=== PATIENT | female | born 2000 | race Caucasian/White ===

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

== ENCOUNTER 2020-08-18 14:53 | Emergency (ER) | payer BC ==
[2020-08-18] MEDS ORDERED: Sodium Chloride 0.9% 10 ML Syringe FLUSH PRN (15:19)
--- NOTE | 2020-08-18 15:19 | EDM.PDOC ---
ED HPI GENERAL MEDICAL PROBLEM - General Stated Complaint: BURNING WHILE PEE Time Seen by Provider: 08/18/20 15:18 Source of Information: Reports: Patient History Limitations: Reports: No Limitations - History of Present Illness INITIAL COMMENTS - FREE TEXT/NARRATIVE: 20-year-old female who reports she woke at 10 AM today rather severe lower abdominal cramping and burning with urination. She also developed diarrhea and has had pretty he is diarrhea since then. She had nausea associated with this and multiple episodes of vomiting and now has continued with nausea and dry heaving. She reports she's had diarrhea 15+. There has been no blood in her stool. She saw has noted that she has blood in her urine and very severe dysuria. She also had a fever 201F. She states she felt completely well yeste rday and through the night. She ate and drink normally yesterday. She rates her pain as a 5/10 now but at is worst he goes up to a 10/10. She feels weak all over. There are no other associated signs or symptoms. There are no other modifying factors. Onset: Today (10 AM) Duration: Constant Location: Reports: Abdomen, Back (Some and lower back), Other (Urethra) Quality: Reports: Burning, Sharp, Other (Cramping) Severity: Moderate (to severe) Improves with: Reports: None Worsens with: Reports: Other (Palpation. 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: Other (see below) (Nothing.) Lower Abdomen Pain Score (Numeric/FACES): 4 - Related Data Allergies Allergy/AdvReac Type Severity Reaction Status Date / Time milk Allergy Nausea Verified 11/18/16 07:11 Home Meds: Home Meds Albuterol [Ventolin HFA] 1 - 2 puff INH Q6H PRN 11/17/16 [History] Cyclobenzaprine [Flexeril] 10 mg PO TID PRN 11/17/16 [History] Levothyroxine [Synthroid] 88 mcg PO ACBREAKFAST 11/17/16 [History] desogestreL-ethinyl estradioL [Desogest-Eth Estra 0.15-0.03MG] 1 each PO DAILY 11/17/16 [History] traMADol [Ultram] 50 mg PO ASDIRECTED PRN 11/17/16 [History] traZODone 50 mg PO BEDTIME 11/17/16 [History] Ondansetron [Zofran ODT] 4 mg PO Q6H PRN #8 tab.dis 08/18/20 [Rx] Sulfamethoxazole/Trimethoprim [Septra DS] 1 each PO BID 7 Days #14 tab 08/18/20 [Rx] Past Medical History Respiratory History: Reports: Asthma Other Respiratory History: EXERCISE INDUCED Gastrointestinal History: Reports: Celiac Disease Psychiatric History: Reports: Anxiety, Depression Hematologic History: Reports: Anemia - Infectious Disease History Other Infectious Disease History: STAPH INFECTION (WOUND) - Past Surgical History Musculoskeletal Surgical History: Reports: Shoulder Surgery Other Musculoskeletal Surgeries/Procedures:: RIGHT SHOULDER Social & Family History - Tobacco Use Tobacco Use Status *Q: Unknown Ever Used Tobacco (Nonsmoker) - Caffeine Use Caffeine Use: Reports: None - Alcohol Use Alcohol Use History: No - Recreational Drug Use Recreational Drug Use: Yes Drug Use in Last 12 Months: Yes Recreational Drug Type: Reports: Marijuana/Hashish Recreational Drug Use Comment: Smokes marijuana about every other day. 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) ED ROS GENERAL - Review of Systems Review Of Systems: See Below Constitutional: Reports: Fever, Chills, Malaise, Weakness, Decreased Appetite HEENT: Reports: No Symptoms Respiratory: Reports: No Symptoms Cardiovascular: Reports: No Symptoms Endocrine: Reports: No Symptoms GI/Abdominal: Reports: Abdominal Pain, Diarrhea, Nausea, Vomiting : Reports: Dysuria, Hematuria Skin: Reports: No Symptoms Neurological: Reports: No Symptoms Psychiatric: Reports: No Symptoms Hematologic/Lymphatic: Reports: No Symptoms Immunologic: Reports: No Symptoms ED EXAM, RENAL/ - Physical Exam Exam: See Below Exam Limited By: No Limitations General Appearance: Alert, WD/WN, Moderate Distress Eye Exam: Bilateral Eye: EOMI, Normal Inspection (Sclerae are anicteric.), PERRL Ears: Normal External Exam, Hearing Grossly Normal Nose: Normal Inspection, Normal Mucosa, No Blood Throat/Mouth: Normal Lips, Normal Voice, No Airway Compromise, Other (Dry mucous membranes) Head: Atraumatic, Normocephalic Neck: Normal Inspection, Supple, Non-Tender, Full Range of Motion Respiratory/Chest: No Respiratory Distress, Lungs Clear, Normal Breath Sounds, No Accessory Muscle Use, Chest Non-Tender Cardiovascular: Normal Peripheral Pulses, Regular Rate, Rhythm, No Murmur GI/Abdominal: Normal Bowel Sounds, Soft, Guarding, Tender (Diffusely but more so over the lower abdomen.) Back Exam: Normal Inspection, Full Range of Motion. No: CVA Tenderness (R), CVA Tenderness (L) Extremities: Normal Inspection, Normal Range of Motion, Non-Tender, No Pedal Edema, Normal Capillary Refill Neurological: Alert, Oriented, CN II-XII Intact, Normal Cognition, No Motor/Sensory Deficits Skin Exam: Warm, Dry, Intact, Normal Color, No Rash Course - Vital Signs Last Recorded V/S: Last Vital Signs Temp 36.6 C 08/18/20 14:53 Pulse 89 08/18/20 18:30 Resp 20 08/18/20 18:30 BP 98/66 08/18/20 18:30 Pulse Ox 100 08/18/20 18:30 - Orders/Labs/Meds Orders: Active Orders 24 hr Category Date Time Status Abdomen Pelvis w Cont [CT] Stat Exams 08/18/20 16:36 Taken CULTURE URINE [RM] Stat Lab 08/18/20 15:18 Received Sodium Chloride 0.9% [Normal Saline] 1,000 ml Med 08/18/20 15:30 Active IV ASDIRECTED Sodium Chloride 0.9% [Saline Flush] Med 08/18/20 15:19 Active 10 ml FLUSH ASDIRECTED PRN Peripheral IV Insertion Adult [OM.PC] Routine Oth 08/18/20 15:19 Ordered Medication Orders Sodium Chloride (Normal Saline) 1,000 mls @ 150 mls/hr IV ASDIRECTED FUAD Sodium Chloride (Sodium Chloride 0.9% 10 Ml Syringe) 10 ml FLUSH ASDIRECTED PRN PRN Reason: Keep Vein Open Last Admin: 08/18/20 18:32 Dose: 10 ml Documented by: DAYNA Labs: Laboratory Tests 08/18/20 08/18/20 08/18/20 Range/Units 15:18 15:18 15:36 WBC 18.2 H (3.0-10.3) x10-3/uL RBC 4.97 (3.60-5.20) x10(6)uL Hgb 13.8 (11.4-15.5) g/dL Hct 41.7 (34.2-48.2) % MCV 83.9 (76.7-100.5) fL MCH 27.8 (23.9-33.9) pg MCHC 33.1 (31.9-34.8) g/dL RDW 13.8 (12.3-16.5) % Plt Count 303 (151-488) x10(3)uL MPV 9.4 (7.1-12.4) fL Add Manual Diff Yes Neutrophils % (Manual) 88 H (46-82) % Lymphocytes % (Manual) 7 L (13-37) % Monocytes % (Manual) 5 (4-12) % Sodium (135-145) mmol/L Potassium (3.5-5.3) mmol/L Chloride (100-110) mmol/L Carbon Dioxide (21-32) mmol/L BUN (7-18) mg/dL Creatinine (0.55-1.02) mg/dL Est Cr Clr Drug Dosing Estimated GFR (MDRD) (>60) BUN/Creatinine Ratio (9-20) Glucose (80-116) mg/dL Calcium (8.6-10.2) mg/dL Total Bilirubin (0.1-1.3) mg/dL AST (5-25) IU/L ALT (12-36) U/L Alkaline Phosphatase (56-112) IU/L C-Reactive Protein (0.5-0.9) mg/dL Total Protein (6.0-8.0) g/dL Albumin (3.5-5.2) g/dL Globulin g/dL Albumin/Globulin Ratio Lipase (73-393) U/L Urine Color Red (YELLOW) Urine Appearance Slightly cloudy (CLEAR) Urine pH 5.0 (5.0-6.5) Ur Specific [place] 1.020 (1.010-1.025) Urine Protein 500 H (NEGATIVE) mg/dL Urine Glucose (UA) Normal (NORMAL) mg/dL Urine Ketones 15 H (NEGATIVE) mg/dL Urine Occult Blood Large H (NEGATIVE) Urine Nitrite Positive H (NEGATIVE) Urine Bilirubin Negative (NEGATIVE) Urine Urobilinogen Normal (NEGATIVE) mg/dL Ur Leukocyte Esterase Large H (NEGATIVE) Urine RBC Packed H (0-5) Urine WBC Packed H (0-5) Urine HCG, Qual Negative (NEGATIVE) 08/18/20 08/18/20 Range/Units 15:36 15:36 WBC (3.0-10.3) x10-3/uL RBC (3.60-5.20) x10(6)uL Hgb (11.4-15.5) g/dL Hct (34.2-48.2) % MCV (76.7-100.5) fL MCH (23.9-33.9) pg MCHC (31.9-34.8) g/dL RDW (12.3-16.5) % Plt Count (151-488) x10(3)uL MPV (7.1-12.4) fL Add Manual Diff Neutrophils % (Manual) (46-82) % Lymphocytes % (Manual) (13-37) % Monocytes % (Manual) (4-12) % Sodium 140 (135-145) mmol/L Potassium 3.2 L (3.5-5.3) mmol/L Chloride 101 (100-110) mmol/L Carbon Dioxide 22 (21-32) mmol/L BUN 13 (7-18) mg/dL Creatinine 0.9 (0.55-1.02) mg/dL Est Cr Clr Drug Dosing TNP Estimated GFR (MDRD) > 60 (>60) BUN/Creatinine Ratio 14.4 (9-20) Glucose 113 (80-116) mg/dL Calcium 8.1 L (8.6-10.2) mg/dL Total Bilirubin 0.5 (0.1-1.3) mg/dL AST 17 (5-25) IU/L ALT 31 (12-36) U/L Alkaline Phosphatase 123 H (56-112) IU/L C-Reactive Protein 1.1 H (0.5-0.9) mg/dL Total Protein 7.8 (6.0-8.0) g/dL Albumin 4.3 (3.5-5.2) g/dL Globulin 3.5 g/dL Albumin/Globulin Ratio 1.2 Lipase 88 (73-393) U/L Urine Color (YELLOW) Urine Appearance (CLEAR) Urine pH (5.0-6.5) Ur Specific [place] (1.010-1.025) Urine Protein (NEGATIVE) mg/dL Urine Glucose (UA) (NORMAL) mg/dL Urine Ketones (NEGATIVE) mg/dL Urine Occult Blood (NEGATIVE) Urine Nitrite (NEGATIVE) Urine Bilirubin (NEGATIVE) Urine Urobilinogen (NEGATIVE) mg/dL Ur Leukocyte Esterase (NEGATIVE) Urine RBC (0-5) Urine WBC (0-5) Urine HCG, Qual (NEGATIVE) Meds: Medications Generic Name Dose Route Start Last Admin Trade Name Freriddhi PRN Reason Stop Dose Admin Sodium Chloride 1,000 mls @ 150 mls/hr 08/18/20 15:30 Normal Saline IV ASDIRECTED FUAD Sodium Chloride 10 ml 08/18/20 15:19 08/18/20 18:32 Sodium Chloride 0.9% 10 Ml Syringe FLUSH 10 ml ASDIRECTED PRN Administration Keep Vein Open Discontinued Medications Generic Name Dose Route Start Last Admin Trade Name Freq PRN Reason Stop Dose Admin Ceftriaxone Sodium 2 gm 08/18/20 18:08 08/18/20 18:32 Ceftriaxone 2 Gm Vial IVPUSH 08/18/20 18:09 2 gm ONETIME ONE Administration Sodium Chloride 1,000 mls @ 999 mls/hr 08/18/20 15:20 08/18/20 16:00 Normal Saline IV 08/18/20 16:20 999 mls/hr .BOLUS ONE Administration Promethazine HCl 25 mg/ Sodium 51 mls @ 200 mls/hr 08/18/20 18:35 08/18/20 18:41 Chloride IV 08/18/20 18:50 200 mls/hr ONETIME ONE Administration Sodium Chloride 1,000 mls @ 999 mls/hr 08/18/20 18:35 08/18/20 18:39 Normal Saline IV 08/18/20 19:35 999 mls/hr .BOLUS ONE Administration Ondansetron HCl 4 mg 08/18/20 15:20 08/18/20 15:57 Ondansetron 4 Mg/2 Ml Sdv IVPUSH 08/18/20 15:21 4 mg ONETIME ONE Administration - Re-Assessments/Exams Free Text/Narrative Re-Assessment/Exam: 08/18/20 16:35 hr: Her blood tests show an elevated white blood cell count. Her urinalysis was just a with a urinary infection. She does have The patient has received Zofran and about half a liter of normal saline IV. She states that she felt much improved. She is sitting on the edge of the bed and appears toxic 10 previous. Her nausea has resolved. Her abdominal pain is much less. However, secondary to the intestinal and urinary symptoms combined, I feel a CT scan of her abdomen and pelvis is necessary to more fully check this out. I discussed all this with the patient and she is in agreement this plan. 08/18/20 18:30: The patient has not received her Rocephin yet. She is now having further emesis. It is nonbilious. She has had no more diarrhea. She has had no more fevers. Abdomen is soft and nontender and the severe abdominal pain that she was having previous is gone. She is still having some blood in her urine. I will not give the patient another liter of normal saline IV as a bolus and will give her Phenergan IV. They are giving the Rocephin now. The plan will be following this for her to be discharged and I will send a prescription of Bactrim DS to the pharmacy for her to take. She has 4 tablets of Zofran at home and I will give her an additional 8 tablets and a prescription as well. She should drink small amounts of fluids frequently and she should rest. She can take Tylenol 1000 mg by mouth every 6 hours as needed for fever or pain. Precautions and reasons for return to the emergency department were discussed with the patient while she was in the emergency department were detailed in the patient's discharge instructions. Departure - Departure Time of Disposition: 20:15 Disposition: Home, Self-Care 01 Condition: Good (Improved) Clinical Impression: Dehydration, Vomiting and diarrhea UTI (urinary tract infection) Qualifiers: Urinary tract infection type: site unspecified Hematuria presence: with hematuria Qualified Code(s): N39.0 - Urinary tract infection, site not specified; R31.9 - Hematuria, unspecified - Discharge Information Prescriptions: Sulfamethoxazole/Trimethoprim [Septra DS] 1 each PO BID 7 Days #14 tab Ondansetron [Zofran ODT] 4 mg PO Q6H PRN #8 tab.dis PRN Reason: Nausea/Vomiting Instructions: Dehydration, Adult, [id number], Nausea and Vomiting, Adult, [id number], Diarrhea, Adult, [id number], Urinary Tract Infection, Adult, [id number] Referrals: Marie Summers E COMMERCE DEVELOPER [Primary Care Provider] - Additional Instructions: Your blood tests were reassuring. Your urine test showed evidence of infection. The CT scan of your abdomen and pelvis showed no acute problem with either your kidneys or your intestines. It appears that you have a urinary infection and that is causing all of your other symptoms. The vomiting and diarrhea did cause some dehydration and we have corrected that with IV fluids. You should drink small amounts of fluids frequently and increase your intake as you tolerated. Use the Zofran that you have for nausea or vomiting. Medications as prescribed for infection (Bactrim DS). Start this tomorrow. You were given an antibiotic tonight in your IV to start treatment of your infection. Rest. Back to the emergency department for increasing abdominal pain, unrelenting vomiting, high fever or any other concerning signs or symptoms. Sepsis Event Note (ED) - Focused Exam Vital Signs: Vital Signs Temp Pulse Resp BP Pulse Ox 08/18/20 18:30 89 20 98/66 100 08/18/20 18:15 84 20 104/62 100 08/18/20 18:01 70 20 96/57 L 99 08/18/20 17:48 102 H 20 97/61 100 08/18/20 17:30 76 20 113/55 L 100 08/18/20 17:23 76 20 114/60 100 08/18/20 16:31 74 20 115/54 L 100 08/18/20 16:14 73 20 127/67 99 08/18/20 15:45 98 20 110/64 100 08/18/20 15:30 96 20 107/69 100 08/18/20 15:15 110 H 20 107/64 100 08/18/20 15:12 93 20 121/66 100 08/18/20 14:53 36.6 C 97 20 130/79 100 - My Orders Last 24 Hours: My Active Orders 08/18/20 15:18 CULTURE URINE [RM] Stat 08/18/20 15:19 Sodium Chloride 0.9% [Saline Flush] 10 ml FLUSH ASDIRECTED PRN Peripheral IV Insertion Adult [OM.PC] Routine 08/18/20 15:30 Sodium Chloride 0.9% [Normal Saline] 1,000 ml IV ASDIRECTED 08/18/20 16:36 Abdomen Pelvis w Cont [CT] Stat - Assessment/Plan Last 24 Hours: My Active Orders 08/18/20 15:18 CULTURE URINE [RM] Stat 08/18/20 15:19 Sodium Chloride 0.9% [Saline Flush] 10 ml FLUSH ASDIRECTED PRN Peripheral IV Insertion Adult [OM.PC] Routine 08/18/20 15:30 Sodium Chloride 0.9% [Normal Saline] 1,000 ml IV ASDIRECTED 08/18/20 16:36 Abdomen Pelvis w Cont [CT] Stat
[2020-08-18] MEDS ORDERED: Sodium Chloride 0.9% 1,000 ML IV ONE ×2 (15:20→18:35)
[2020-08-18] MEDS ORDERED: Ondansetron 4 MG/2 ML SDV IVPUSH ONE (15:20)
[2020-08-18] MEDS ORDERED: Sodium Chloride 0.9% 1,000 ML IV SCH (15:30)
[2020-08-18] MEDS ORDERED: Iopamidol 755 Mg/ML 100 ML Bottle IV ONE (17:10)
[2020-08-18] MEDS ORDERED: cefTRIAXone 2 GM Vial IVPUSH ONE (18:08)
[2020-08-18] MEDS ORDERED: Promethazine 25 MG in Sodium Chloride 0.9% 50 ML IV ONE (18:35)
[2020-08-19 00:52] VITALS: BP 114/63; PULSE 69
== END 2020-08-18 20:45 | disposition home or self-care (01) ==
LOC: FB.ED 14:53
DX: N39.0 Urinary tract infection, site not specified (principal); E86.0 Dehydration; R31.9 Hematuria, unspecified; Z79.899 Other long term (current) drug therapy; Z91.011 Allergy to milk products
CPT/HCPCS: 36415; 74177; 80053; 81001; 81025; 83690; 85025; 86140; 87086; 87088; 87186; 96365; 96375; 99284; J0696; J2405; J2550; J7030; Q9967

== ENCOUNTER 2021-02-12 06:26 | Day surgery (SDC) | payer BC ==
[2021-02-12] MEDS ORDERED: Midazolam 1 MG/ML 2 ML SDV IV ONE (06:27)
[2021-02-12] MEDS ORDERED: Ondansetron 4 MG/2 ML SDV IVPUSH ONE (06:27)
[2021-02-12] MEDS ORDERED: Glycopyrrolate 0.2 MG/ML 5 ML MDV IV ONE (06:27)
[2021-02-12] MEDS ORDERED: Succinylcholine 200 MG/10 ML MDV IV ONE (06:27)
[2021-02-12] MEDS ORDERED: HYDROmorphone 2 MG/ML SDV IV ONE (06:27)
[2021-02-12] MEDS ORDERED: Lactated Ringers 1,000 ML IV ONE (06:27)
[2021-02-12] MEDS ORDERED: Rocuronium 100 MG/10 ML MDV IV ONE (06:27)
[2021-02-12] MEDS ORDERED: Lidocaine 2% 5 ML SDV INJECT ONE (06:27)
[2021-02-12] MEDS ORDERED: Propofol 200 MG/20 ML SDV IV ONE (06:27)
[2021-02-12] MEDS ORDERED: Dexamethasone 4 MG/ML 5 ML MDV IVPUSH ONE (06:27)
[2021-02-12] MEDS ORDERED: Neostigmine Methylsulfate 10 MG/10 ML MDV IVPUSH ONE (06:27)
[2021-02-12] MEDS ORDERED: Sodium Chloride 0.9% 10 ML Syringe FLUSH PRN (06:45)
[2021-02-12] MEDS ORDERED: Lactated Ringers 1,000 ML IV SCH (06:45)
[2021-02-12] MEDS ORDERED: Acetaminophen 500 MG Tab PO ONE (07:00)
[2021-02-12] MEDS ORDERED: Ondansetron 8 MG Tab.DIS PO ONE (07:00)
--- NOTE | 2021-02-12 08:06 | PCM.HPR ---
H & P Addendum review - H & P Addendum Review Date of Original H & P: 01/29/21 Date Reviewed: 02/12/21 Time Reviewed: 07:50 Patient was Examined: No Changes
--- NOTE | 2021-02-12 09:05 | PCM.OPNOTE ---
- General Post-Op/Procedure Note Date of Surgery/Procedure: 02/12/21 Operative Procedure(s): Lap [place] Findings: Some inflammation Pre Op Diagnosis: Chronic Pain RUQ Post-Op Diagnosis: Same Anesthesia Technique: General ET Tube Primary Surgeon: Parminder Shaw Pathology: GB EBL in mLs: 20 Complications: None Condition: Good
[2021-02-12] MEDS ORDERED: Acetaminophen/HYDROcodone 325-5 MG Tab PO PRN (09:09)
[2021-02-12] MEDS ORDERED: Morphine 2 MG/ML SYRINGE IVPUSH PRN (09:09)
[2021-02-12] MEDS ORDERED: Promethazine 25 MG/ML SDV IM ONE (10:01)
--- NOTE | 2021-02-12 12:25 | OR ---
DATE OF OPERATION: 02/12/2021 SURGEON: Parminder Shaw MD PREOPERATIVE DIAGNOSIS: Chronic right upper quadrant abdominal pain. POSTOPERATIVE DIAGNOSIS: Chronic cholecystitis. PROCEDURE: Laparoscopic cholecystectomy. ANESTHESIA: General. PROCEDURE IN DETAIL: The patient was brought to the operating room where general endotracheal anesthesia was administered. A time-out was performed. The abdomen was prepped and draped sterilely. An infraumbilical incision was made and extended into the peritoneal cavity without difficulty. The Collins cannulator was introduced and pneumoperitoneum obtained. The remaining three 5 mm ports were placed in the usual positions. The patient was placed in reverse Trendelenburg position and rotated to her left. General exploration of the gallbladder, liver, stomach, peritoneal and omental surfaces all were normal. The gallbladder was grasped and retracted cephalad. Cystic duct and cystic artery were dissected free with minimal difficulty. There was some fibrosis and vascularity in doing so resulting in some oozing. Once the main cystic artery and cystic duct branches were confirmed, each was doubly clipped proximally and once distally and then transected. There was another posterior branch of the cystic artery that had some oozing that was also doubly clipped proximally and once distally and then transected. The gallbladder was brought off the bed of the liver using electrocautery without difficulty. No bleeding or bile leakage occurred. The gallbladder was brought out through the umbilical incision site. The right upper quadrant was thoroughly irrigated and inspected and return was clear and hemostasis assured. All clips were in place. Ports were removed under direct vision without difficulty and remained hemostatic. Umbilical fascia was closed with [id number] 0 Vicryl. Skin was closed with 4-0 Vicryl subcuticular sutures. Benzoin and Steri-Strips were placed and Band-Aids applied. The patient tolerated the procedure well. Estimated blood loss 20 mL. She returned to postanesthesia in stable condition. /[id number] NAVIN/SHERYL
[2021-02-12 12:33] VITALS: BP 127/87; PULSE 85
== END 2021-02-12 11:05 | disposition home or self-care (01) ==
LOC: FB.SDS 06:26
PROVIDERS: ATTEND Surgery
DX: K81.1 Chronic cholecystitis (principal); E03.9 Hypothyroidism, unspecified; F41.9 Anxiety disorder, unspecified; G43.909 Migraine, unspecified, not intractable, without status migrainosus; Z88.8 Allergy status to other drugs, medicaments and biological substances; Z91.011 Allergy to milk products; Z79.899 Other long term (current) drug therapy
CPT/HCPCS: 00790-QZ; 81025; 88304; 94150; A9270-GY; J0330; J1100; J1170; J2250; J2405; J2550; J2704; J2710; J3490; J7120

== ENCOUNTER 2021-04-29 10:50 | Emergency (ER) | payer BC, OTHER ==
[2021-04-29] MEDS ORDERED: Lactated Ringers 1,000 ML IV ONE (11:03)
[2021-04-29] MEDS ORDERED: Promethazine 12.5 MG in Sodium Chloride 0.9% 50 ML IV STA (11:05)
[2021-04-29 11:50] VITALS: BP 121/67; PULSE 95
== END 2021-04-29 12:40 | disposition home or self-care (01) ==
LOC: FB.ED 10:50
DX: R11.2 Nausea with vomiting, unspecified (principal); R42 Dizziness and giddiness; G43.909 Migraine, unspecified, not intractable, without status migrainosus; E03.9 Hypothyroidism, unspecified; Z91.048 Other nonmedicinal substance allergy status; Z91.011 Allergy to milk products; Z79.899 Other long term (current) drug therapy
CPT/HCPCS: 36415; 80048; 96374; 99284-25; J2550; J7120

== ENCOUNTER 2024-04-24 05:51 | Emergency (ER) | payer BC, OTHER ==
[2024-04-24] MEDS ORDERED: Ondansetron 4 MG Tab.DIS PO ONE (05:52)
[2024-04-24] MEDS ORDERED: Sodium Chloride 0.9% 10 ML Syringe FLUSH PRN (06:08)
[2024-04-24] MEDS: Metoclopramide 10 MG/2 ML SDV IVPUSH ONE (06:24)
[2024-04-24] MEDS: Sodium Chloride 0.9% 1,000 ML IV ONE (06:24)
[2024-04-24 06:32] VITALS: BP 101/68; PULSE 76
[2024-04-24 06:44] LABS: BASOPHILS PERCENT AUTO 0.6 % (0.2-1.5); EOSINOPHILS PERCENT AUTO 0.3 % (0.6-8.1); HEMATOCRIT 40.1 % (34.2-48.2); HEMOGLOBIN 13.8 g/dL (11.4-15.5); LYMPHOCYTES ABSOLUTE AUTO 1.2 x10-3/uL (1.0-4.4); LYMPHOCYTES PERCENT AUTO 15.8 % (18.4-52.1); MEAN CORPUSCULAR HEMOGLOBIN 29.7 pg (23.9-33.9); MEAN CORPUSCULAR HGB CONC 34.6 g/dL (31.9-34.8); MEAN CORPUSCULAR VOLUME 86.1 fL (76.7-100.5); MEAN PLATELET VOLUME 8.9 fL (7.1-12.4); MONOCYTES ABSOLUTE AUTO 0.4 x10-3/uL (0.3-1.0); MONOCYTES PERCENT AUTO 4.7 % (4.4-15.7); NEUTROPHILS ABSOLUTE AUTO 5.9 x10-3/uL (1.5-6.3); NEUTROPHILS PERCENT AUTO 78.6 % (30.8-76.2); PLATELET COUNT,PLT 286 x10(3)uL (151-488); RED BLOOD CELL COUNT 4.65 x10(6)uL (3.60-5.20); RED CELL DISTRIBUTION WIDTH 12.7 % (12.3-16.5); WHITE BLOOD CELL COUNT,WBC 7.5 x10-3/uL (3.0-10.3)
[2024-04-24 07:33] LABS: A/G RATIO 1.3; ALANINE AMINOTRANSFERASE,ALT 30 U/L (12-36); ALBUMIN 4.2 g/dL (3.5-5.2); ALKALINE PHOSPHATASE 80 IU/L (56-112); ASPARTATE AMNIOTRANSFERASE,AST 17 IU/L (5-25); BILIRUBIN TOTAL 0.7 mg/dL (0.1-1.3); BLOOD UREA NITROGEN,BUN 6 mg/dL (7-18); CALCIUM 9.4 mg/dL (8.6-10.2); CARBON DIOXIDE,CO2 21 mmol/L (21-32); CREATININE 0.6 mg/dL (0.55-1.02); EST CRCL DRUG DOSING (CG) 114.35 mL/min; ESTIMATED GFR 128 mL/min (>60); GLUCOSE RANDOM 97 mg/dL (80-116); PROTEIN TOTAL,TP 7.4 g/dL (6.0-8.0)
[2024-04-24 08:45] LABS: SODIUM,NA 138 mmol/L (135-145)
[2024-04-24 08:46] LABS: CHLORIDE,CL 103 mmol/L (100-110)
== END 2024-04-24 07:30 | disposition home or self-care (01) ==
LOC: FB.ED 05:51
DX: O99.281 Endocrine, nutritional and metabolic diseases complicating pregnancy, first trimester (principal); E86.0 Dehydration; O21.9 Vomiting of pregnancy, unspecified; Z91.048 Other nonmedicinal substance allergy status; Z91.011 Allergy to milk products; Z79.899 Other long term (current) drug therapy; Z3A.01 Less than 8 weeks gestation of pregnancy
CPT/HCPCS: 36415; 80053; 85025; 96360; 99284; 99284-25; J2765; J7030; Q0162